=== PATIENT | male | born 1970 | race Caucasian/White ===

== ENCOUNTER 2021-06-13 11:01 | Emergency (ER) | payer SELFPAY ==
[~2021-06-13] VITALS: Ht 160 cm; Wt 60.3 kg
[2021-06-13 11:20] VITALS: BP 139/70
[2021-06-13] MEDS ORDERED: TACR1CAP17 PO (12:17)
[2021-06-13] MEDS ORDERED: MYCO500T3 PO (12:17)
[2021-06-13 13:00] VITALS: BP 133/68
--- NOTE | 2021-06-13 13:01 | NUR ---
NO NURSING CARE GIVEN. Patient discharged with v/s stable. Written and verbal after care instructions given and explained. Patient alert, oriented and verbalized understanding of instructions. Ambulatory with steady gait. All questions addressed prior to discharge. ID band removed. Patient advised to follow up with PMD. Rx of PROGRAF, MYCOPHENOLATE given. Patient educated on indication of medication including possible reaction and side effects. Opportunity to ask questions provided and answered.
== END 2021-06-13 13:01 | disposition home or self-care (01) ==
LOC: MED 11:01
DX: N18.9 Chronic kidney disease, unspecified (principal); Z76.0 Encounter for issue of repeat prescription
CPT/HCPCS: 99281